=== PATIENT | male | born 1975 | race Caucasian/White ===

== ENCOUNTER 2020-08-10 18:16 | Outpatient (REF) | payer SELFPAY ==
[2020-08-10 19:31] LABS: Abs Immature Grans 0.02 10^3/uL (0.0-0.06); Absolute Basophil Count 0.08 10^3/uL (0.0-0.2); Absolute Eosinophil Count 0.22 10^3/uL (0.0-0.7); Absolute Lymphocyte Count 2.79 10^3/uL (1.2-3.4); Absolute Monocyte Count 0.57 10^3/uL (0.1-0.8); Absolute Neutrophil Count 4.05 10^3/uL (1.2-6.7); Eosinophils % 2.8; HCT 48.5 % (40.0-50.0); HGB 15.9 g/dL (13.5-17.5); Immature Grans % 0.3; Lymphocytes % 36.1; MCHC 32.8 % (32.0-36.0); MCV 91.5 fL (80-95); MPV 9.5 fL (8.0-11.0); Monocytes % 7.4; Neutrophils % 52.4; Nucleated RBC 0 %; Platelet Count 298 10^3/uL (130-400); RDW 12.4 % (11.8-14.1); RDW-SD 42.2 fL; WBC 7.73 10^3/uL (4.4-10.8)
[2020-08-10 19:50] LABS: ALT 39 U/L (16-63); AST 19 U/L (15-37); Alkaline Phosphatase 84 U/L (46-116); Anion Gap 9.1 mmol/L (3-11); BUN 11 mg/dL (7-18); Bilirubin, Total 0.4 mg/dL (0.2-1.0); CO2 26.9 mmol/L (21.0-32.0); CREATININE 1.28 mg/dL (0.70-1.30); Calcium 8.7 mg/dL (8.5-10.1); Chloride 103 mmol/L (98-107); Glucose 149 mg/dL (74-106); Potassium 4.6 mmol/L (3.5-5.1); Sodium 139 mmol/L (136-145); Total Protein 7.3 g/dL (6.4-8.2)
[2020-08-10 20:40] LABS: Calculated LDL 116 mg/dL (<100); Cholesterol 173 mg/dL (<200); HDL Cholesterol 34 mg/dL (40-60); Triglyceride 119 mg/dL (<150)
[2020-08-11 15:43] LABS: Hemoglobin A1C 5.5 % (<5.7)
== END 2020-08-10 18:36 ==
LOC: NCHCN 18:16
PROVIDERS: PCP Physician Assistant Medical; Visit Provider Physician Assistant
DX: R31.9 Hematuria, unspecified (principal); R73.9 Hyperglycemia, unspecified; Z13.220 Encounter for screening for lipoid disorders
CPT/HCPCS: 80053; 80061; 83036; 85025; 87086

== ENCOUNTER 2020-12-04 14:28 | Outpatient (REF) | payer OTHER, SELFPAY ==
[2020-12-05 04:25] LABS: COVID-19 RT-PCR UVMMC Result Positive (Negative)
== END 2020-12-04 14:29 | disposition home or self-care (01) ==
LOC: NCHCN 14:28
PROVIDERS: PCP Physician Assistant Medical; Visit Provider Physician Assistant
DX: R50.9 Fever, unspecified (principal); Z20.822 Contact with and (suspected) exposure to COVID-19
CPT/HCPCS: U0003

== ENCOUNTER 2023-07-02 09:22 | Outpatient (REF) | payer OTHER, SELFPAY ==
[2023-07-02 20:22] LABS: HCT 48.4 % (40.0-50.0); HGB 16.1 g/dL (13.5-17.5); MCHC 33.3 % (32.0-36.0); MCV 90 fL (80-95); MPV 9.4 fL (8.0-11.0); Platelet Count 288 10^3/uL (130-400); RBC 5.36 10^6/uL (4.36-5.78); RDW 12.7 % (11.8-14.1); RDW-SD 42.3 fL; WBC 10.14 10^3/uL (4.4-10.8)
[2023-07-02 21:04] LABS: ALT 48 U/L (16-63); AST 29 U/L (15-37); Albumin 4.2 g/dL (3.4-5.0); Alkaline Phosphatase 77 U/L (46-116); Anion Gap 7.4 mmol/L (3-11); BUN 10 mg/dL (7-18); Bilirubin, Total 0.8 mg/dL (0.2-1.0); CO2 27.6 mmol/L (21.0-32.0); CREATININE 1.2 mg/dL (0.70-1.30); Calcium 9.2 mg/dL (8.5-10.1); Calculated LDL 126 mg/dL (<100); Chloride 103 mmol/L (98-107); Cholesterol 187 mg/dL (<200); Glucose 106 mg/dL (74-106); HDL Cholesterol 42 mg/dL (40-60); Potassium 4.6 mmol/L (3.5-5.1); Sodium 138 mmol/L (136-145); TSH (W/Ref FT4) 1.87 uIU/mL (0.36-3.74); Total Protein 7.7 g/dL (6.4-8.2); Triglyceride 95 mg/dL (<150)
== END 2023-07-02 09:23 | disposition home or self-care (01) ==
LOC: NCHCN 09:22
PROVIDERS: PCP Physician Assistant Medical; Visit Provider Physician Assistant
DX: R07.89 Other chest pain (principal); R73.03 Prediabetes; K86.1 Other chronic pancreatitis; Z13.220 Encounter for screening for lipoid disorders; Z00.00 Encounter for general adult medical examination without abnormal findings
CPT/HCPCS: 80053; 80061; 85027; 84443

== ENCOUNTER 2024-12-29 11:02 | Outpatient (REF) | payer MEDICAID, SELFPAY ==
[2024-12-29 19:48] LABS: HCT 49.3 % (40.0-50.0); HGB 16.7 g/dL (13.5-17.5); MCH 30.1 pg (27.0-33.0); MCHC 33.9 % (32.0-36.0); MCV 89 fL (80-95); MPV 9.7 fL (8.0-11.0); Platelet Count 285 10^3/uL (130-400); RBC 5.54 10^6/uL (4.36-5.78); RDW-SD 42.5 fL; WBC 6.55 10^3/uL (4.4-10.8)
[2024-12-29 19:53] LABS: ESR 11 mm/hr (0-15)
== END 2024-12-29 11:03 | disposition home or self-care (01) ==
LOC: NCHCN 11:02
PROVIDERS: PCP Physician Assistant Medical; Visit Provider Nurse Practitioner Family
DX: R53.81 Other malaise (principal); R53.83 Other fatigue
CPT/HCPCS: 85027; 85652

== ENCOUNTER 2025-05-05 15:00 | Outpatient (REF) | payer MEDICAID, SELFPAY ==
[2025-05-05 19:46] LABS: ALT 48 U/L (16-63); AST 23 U/L (15-37); Albumin 3.6 g/dL (3.4-5.0); Alkaline Phosphatase 76 U/L (46-116); Anion Gap 7.1 mmol/L (3-11); BUN 9 mg/dL (7-18); Bilirubin, Total 0.6 mg/dL (0.2-1.0); CO2 26.9 mmol/L (21.0-32.0); Calcium 9.1 mg/dL (8.5-10.1); Calculated LDL 101 mg/dL (<100); Chloride 105 mmol/L (98-107); Cholesterol 161 mg/dL (<200); Estimated GFR 66.93 (mL/min/1.73m2); Glucose 113 mg/dL (74-106); HDL Cholesterol 33 mg/dL (>or=40); Potassium 4.4 mmol/L (3.5-5.1); Sodium 139 mmol/L (136-145); Total Protein 7.5 g/dL (6.4-8.2); Triglyceride 138 mg/dL (<150)
== END 2025-05-05 15:01 | disposition home or self-care (01) ==
LOC: NCHCN 15:00
PROVIDERS: PCP Physician Assistant Medical; Visit Provider Physician Assistant
DX: E78.5 Hyperlipidemia, unspecified (principal)
CPT/HCPCS: 80053; 80061